=== PATIENT | female | born 1970 | race Caucasian/White ===

== ENCOUNTER 2017-03-11 10:18 | Emergency (ER) | payer OTHER ==
--- NOTE | 2017-03-11 12:04 | DIAGNOSTIC IMAGING REPORT ---
PROCEDURE: CT ABDOMEN/PELVIS W/O CONTRAST INDICATION: Left flank pain. History of renal calculi. TECHNIQUE: Noncontrast axial images were obtained of the entire abdomen and pelvis with sagittal and coronal reformations. COMPARISON: CT abdomen/pelvis 10/22/2015. FINDINGS: ABDOMEN: New punctate density which may represent a mid left ureteral calculus with mild left hydronephrosis. Punctate nonobstructing calculus in the right renal lower pole. Lung bases are clear. Heart size is normal. Cholecystectomy. Liver, pancreas, spleen and adrenal glands are normal. Minor atherosclerosis of the aorta. Stool throughout the large bowel. PELVIS: Normal appendix. Hysterectomy. Normal bladder. No inflammatory changes or free fluid. L4-5 surgical fusion with bilateral pedicle screws, anterior rods and disc spacer. Severe L5-S1 disc space narrowing. IMPRESSION: 1. Mild left hydronephrosis with suspected mid left ureteral calculus 2. Nonobstructing right renal calculus 3. Cholecystectomy, hysterectomy and L4-5 spinal fusion. 4. Results discussed with Dr. Broussard All CT scans at this facility use dose modulation, iterative reconstruction, and/or weight-based dosing when appropriate to reduce radiation dose to as low as reasonably achievable.
--- NOTE | 2017-03-11 12:34 | ED NURSING NOTES ---
Clinical Report - Nurses [facility] [address] [place] [address] 03/11/2017 10:21 Patient: LILIAN PARMAR TRIAGE Triage time 1024. Acuity: LEVEL 3. Chief Complaint: PAINFUL URINATION, URGENCY and FREQUENCY. --10:35 Maria T Duncan R.N. 10:24 03/11/17. BP: 120/60. HR: 84. RR: 20. O2 saturation: 100%. Temp: 98.5 F. Pain level now: 08/03. --10:35 Maria T Duncan R.N. Weight: 70.3 kg stated. Height/Length: 66 inches Per Patient. BMI: 25. --10:25 Maria T Duncan R.N. Medications Atenolol Oral (Tablet 50 mg), daily. Estradiol Oral (Tablet 1 mg) 1 tablet. --10:33 Maria T Duncan R.N. HydrOXYzine HCl Oral. Zofran ODT Oral (Tablet Dispersible 4 mg), as needed, last dose 0700. --10:33 Maria T Duncan R.N. Percocet 1-2 tabs every 4 hours - last dose 0630. --10:34 Maria T Duncan R.N. Allergies all anti nausea medication except for zofran. ("heart problem....heart goes fast and I feel like I want to crawl out of my skin" ) --10:27 Maria T Duncan R.N. The following entry was struck and corrected by Maria T Duncan R.N., 10:35 (03/11/17) Reason for correction - other(correction). <<STRICKEN ENTRY-- all anti nausea medication except for zofran. --10:27 Maria T Duncan R.N. --END STRIKE>>. History Arrived by private vehicle. Historian: patient. Accompanied by friend. Primary physician (vilma melendez). Onset. (1 week, has appt with urologist tomorrow, but "couldn't wait until then, just getting worse). She has had abdominal pain (left sided low abd pain going into groin area). ( hx of kidney stones - last episode 2 weeks ago). PAST MEDICAL HX: The patient has had a hysterectomy. SOCIAL HX: Light tobacco smoker (cigarette)- less than 1/2 a pack per day. History of drug use: marijuana. No alcohol use. --10:35 Maria T Duncan R.N. PROBLEMS: Abdominal Pain. Diabetes Mellitus. Allergic Reaction. Back Injury. Arthritis. SVT. Back Pain. --10:27 Maria T Duncan R.N. Nephrolithiasis. --10:31 Maria T Duncan R.N. ADDITIONAL SURGERIES: Back Surgery. Hysterectomy. Laminectomy. TMJ surgery. --10:27 Maria T Duncan R.N. Cholecystectomy. --10:31 Maria T Duncan R.N. Interventions ID band on patient. To treatment room. --10:35 Maria T Duncan R.N. PHYSICAL ASSESSMENT 10:24. To room via wheelchair. Patient gowned. GENERAL / NEURO / PSYCH: Alert. Oriented X 4. RESPIRATORY: Respirations not labored. CVS: Capillary refill less than 2 seconds. GI / : Abdomen soft. Pain with urination. She has had frequency of urination. Urgency of urination. No vaginal bleeding. SKIN: Skin is warm and dry. --10:36 Maria T Duncan R.N. NURSING PROGRESS NOTES 10:24. Patient gowned. Head of bed elevated. Reassurance given. Patient identifiers checked. Call light placed in reach. Side rails up. Bed placed in lowest position. Patient ready for evaluation- chart flagged. --10:35 Maria T Duncan R.N. 10:35 03/11/17. Patient ID band checked for patient name and birthdate: patient confirmed. Clean catch urine collected with return of yellow-colored clear urine; sample sent to lab for urinalysis and culture. Specimen labeled in the presence of the patient. --10:36 Maria T Duncan R.N. 11:00 03/11/2017 Site #1 started via IV in the right antecubital space with an 20g angiocath, with aseptic technique and good blood return; one attempt. Blood drawn: rainbow set. Labeled in the presence of the patient and sent to the lab. Saline lock flushed with 10 mL saline. --11:11 Maria T Duncan R.N. <<STRICKEN ENTRY-- 11:10. Wound irrigated with 250 mL sterile NS; patient tolerated procedure well (done by [employer]). --11:31 Maria T Duncan R.N. --END STRIKE>> Correction --11:34 Maria T Duncan R.N. <<STRICKEN ENTRY-- 11:20. Applied clean bulky dressing consisting of adaptic and gauze, following the application of antibiotic ointment. Secured with tape and kerlix (done by [email or web address]). --11:32 Maria T Duncan R.N. --END STRIKE>> Correction --11:34 Maria T Duncan R.N. <<STRICKEN ENTRY-- 11:22. ( post op walking boot placed on pt by [employer]). --11:33 Maria T Duncan R.N. --END STRIKE>> Correction --11:40 Maria T Duncan R.N. 11:27. Patient transported to [place] by stretcher with tech. --11:40 Maria T Duncan R.N. 11:37. Patient returned from [place] by stretcher with tech. --11:41 Maria T Duncan R.N. 11:05 03/11/2017 Zofran (Ondansetron HCl) IVP 4 mg given over 1 minute(s) via site #1. IV patency established. IV site checked: no pain, redness, or swelling. IV flushed thoroughly pre- and post-medication administration. IVP given by RN. --11:42 Maria T Duncan R.N. 11:06 03/11/2017 Toradol IVP 30 mg given over 1 minute(s) via site #1. IV patency established. IV site checked: no pain, redness, or swelling. IV flushed thoroughly pre- and post-medication administration. IVP given by RN. --11:42 Maria T Duncan R.N. 11:07 03/11/2017 Dilaudid (HYDROmorphone HCl PF) IVP 1 mg given over 1 minute(s) via site #1. Sedative warning given to the patient. IV patency established. IV site checked: no pain, redness, or swelling. IV flushed thoroughly pre- and post-medication administration. IVP given by RN. --11:43 Maria T Duncan R.N. 11:10 03/11/2017 Started bag #1 1000 mL IV Fluids IV NS (Saline); at 1000 mL/hr over 1 minute(s) via site #1 via IV pump. IV patency established. IV site checked: no pain, redness, or swelling. IV flushed thoroughly pre- and post-medication administration. --11:43 Maria T Duncan R.N. 12:10. ( pt ambulated to bathroom, able to walk standing up. states pain is 7/10). --12:24 Maria T Duncan R.N. 11:55 03/11/2017 Dilaudid (HYDROmorphone HCl PF) IVP 2 mg given over 1 minute(s) via site #1. Sedative warning given to the patient. IV patency established. IV site checked: no pain, redness, or swelling. IV flushed thoroughly pre- and post-medication administration. IVP given by RN. --12:25 Maria T Duncan R.N. 12:15 03/11/17. BP: 121/68. HR: 64. RR: 16. O2 saturation: 98%. Temp: 98.3 F. Pain level now: 10. --12:33 Maria T Duncan R.N. 12:50 03/11/2017 Started 1 gm of Ceftriaxone IVPB in bag #1 50 mL; at 150 mL/hr over 20 minute(s) via site #1 via IV pump. IV patency established. IV site checked: no pain, redness, or swelling. IV flushed thoroughly pre- and post-medication administration. --13:18 Maria T Duncan R.N. 13:00 03/11/2017 Pyridium (Phenazopyridine HCl) PO Tablets 100 mg given. Allergies verified and confirmed 5 rights. --13:19 Maria T Duncan R.N. 13:05 03/11/2017 Ceftriaxone IVPB Discontinued: bag #1 infused upon discharge. Total amount infused: 50 mL. IV patency established. IV site checked: no pain, redness, or swelling. IV flushed thoroughly. --13:18 Maria T Duncan R.N. 13:00 pt asking for additional pain meds prior to discharge, ERMD notified, meds ordered and given. --13:39 Maria T Duncan R.N. 12:10 03/11/2017 IV Fluids IV NS Bag Change: bag #1 infused. Total amount infused: 1000. STARTED bag #2 (1000 mL) at 1000 mL/hr via IV pump. IV patency established. IV site checked: no pain, redness, or swelling. IV flushed thoroughly. --13:51 Maria T Duncan R.N. 12:30 03/11/2017 Dilaudid (HYDROmorphone HCl PF) IVP 2 mg given over 1 minute(s) via site #1. Sedative warning given to the patient. IV patency established. IV site checked: no pain, redness, or swelling. IV flushed thoroughly pre- and post-medication administration. IVP given by RN. --13:42 Maria T Duncan R.N. 12:32 03/11/2017 Zofran (Ondansetron HCl) IVP 4 mg given over 1 minute(s) via site #1. IV patency established. IV site checked: no pain, redness, or swelling. IV flushed thoroughly pre- and post-medication administration. IVP given by RN. --13:44 Maria T Duncan R.N. 13:00 03/11/2017 IV Fluids IV NS Discontinued: bag #2 STOPPED upon discharge. Total amount infused: 700 mL. IV patency established. IV site checked: no pain, redness, or swelling. IV flushed thoroughly. --13:51 Maria T Duncan R.N. 13:03 03/11/2017 Dilaudid (HYDROmorphone HCl PF) IVP 1 mg given over 1 minute(s) via site #1. IV patency established. IV site checked: no pain, redness, or swelling. IV flushed thoroughly pre- and post-medication administration. IVP given by RN. --13:43 Maria T Duncan R.N. 13:05 03/11/2017 Site #1 removed upon discharge. Bandaid applied. --13:52 Maria T Duncan R.N. DISPOSITION / DISCHARGE <<[facility] ENTRY-- 11:25. Condition at departure: stable. No learning barriers present. Discharge instructions provided and reviewed with the patient. Reviewed medication(s) (bactrim, keflex). Reviewed wound care instructions (post op walking boot). Patient verbalized understanding. Written instructions provided in [place]. The patient was discharged home. She left the Emergency Department ambulatory and via private vehicle. --11:30 Maria T Duncan R.N. --END STRIKE>> Charted On Wrong Patient --11:34 Maria T Duncan R.N. <<[facility] ENTRY-- 11:25 03/11/17. BP: 116/61. HR: 73. RR: 16. O2 saturation: 97% on room air. Temp: deferred. Pain level now: 0/10. --11:30 Maria T Duncan R.N. --END STRIKE>> Correction. --11:34 Maria T Duncan R.N. 13:10. Condition at departure: stable. No learning barriers present. Discharge instructions provided and reviewed with ditch tender and the patient. Reviewed medication(s) (zofran, cephalexin). Patient and ditch tender verbalized understanding. Written instructions provided in [place]. The patient was discharged home and accompanied by ditch tender. She left the Emergency Department ambulatory and via private vehicle. [employer] driving. --13:16 Maria T Duncan R.N. 13:10 03/11/17. BP: 110/70. HR: 68. RR: 16. O2 saturation: 100%. Temp: deferred. Pain level now: 7/10. --13:16 Maria T Duncan R.N. Locked/Released at 03/11/2017 13:52 by Maria T Duncan R.N.
--- NOTE | 2017-03-11 12:34 | ED ORDER SUMMARY ---
..... Patient: LILIAN PARMAR OrderSheet VisitID: [id number] [address] [place] [address] 47y, F Registration Date/Time: 03/11/2017 ORDER SHEET Weight: 70.3 kg (stated) Allergies: all anti nausea medication except for zofran, GENERAL ORDERS: UA-Culture if indicated Urgent (10:24 03/11/2017 Jef Nolan) (Ack 10:25 IJurcvish ER Tech1) (10:36 DDean R.N.) Urine Urgent (10:24 03/11/2017 Jef Nolan) (Ack 10:25 Richard ER Tech1) (Cancelled: [id number] DDean R.N.) CT Abd/Pel wo Cont Urgent (10:49 03/11/2017 Jef Nolan) (Ack 10:53 Richard ER Tech1) (11:33 DDean R.N.) CBC w Diff Urgent (10:49 03/11/2017 Jef Nolan) (Ack 10:53 Richard ER Tech1) (11:12 DDean R.N.) BMP Urgent (10:49 03/11/2017 Jef Nolan) (Ack 10:53 Richard ER Tech1) (11:12 DDean R.N.) MEDICATION ORDERS: Pyridium PO 100 mg (NOW) (12:32 03/11/2017 Jef Nolan) (Ack 12:33 DDean R.N.) (13:19 DDean R.N.) IV FLUIDS: IV NS : initial bolus 1000 mL (1000 mL/hr), then none - for X1 (NOW) (10:48 03/11/2017 Jef Nolan) (Ack 10:52 DDean R.N.) (11:43 DDean R.N.) Toradol IV 30 mg (NOW) (10:49 03/11/2017 Jef Nolan) (Ack 10:52 DDean R.N.) (11:42 DDean R.N.) Dilaudid IV 1 mg (HIGH ALERT MEDICATION, NOW) (10:49 03/11/2017 Jef Nolan) (Ack 10:53 DDean R.N.) (11:42 DDean R.N.) Zofran IV 4 mg (NOW) (10:49 03/11/2017 Jef Nolan) (Ack 10:53 DDean R.N.) (11:42 DDean R.N.) Dilaudid IV 2 mg (HIGH ALERT MEDICATION, NOW) (11:44 03/11/2017 Jef Nolan) (Ack 11:49 DDean R.N.) (12:25 DDean R.N.) Ceftriaxone IV 1 gm/50mL (NOW) (11:59 03/11/2017 Jef Nolan) (Ack 12:33 DDean R.N.) (13:18 DDean R.N.) Zofran IV 4 mg (NOW) (12:31 03/11/2017 Jef Nolan) (Ack 12:33 DDean R.N.) (13:44 DDean R.N.) Dilaudid IV 2 mg (HIGH ALERT MEDICATION, NOW) (12:32 03/11/2017 Jef Nolan) (Ack 12:33 DDean R.N.) (13:42 DDean R.N.) Dilaudid IV 1 mg (NOW) (13:42 03/11/2017 DDean R.N. per protocol) (13:43 DDean R.N.) ORDER SHEET NOTES: [Electronically signed by Maria T Duncan R.N. (13:52 03/11/2017)] [Electronically signed by Arsalan Broussard Dr. (10:27 03/12/2017)] [Electronically locked/signed by Maria T Duncan R.N. (13:52 03/11/2017)]
--- NOTE | 2017-03-11 12:34 | ED CLINICAL REPORT ---
Clinical Report - Physicians/Mid Levels [facility] [address] [place] [address] 03/11/2017 10:21 Patient: LILIAN PARMAR Time Seen: 1020. Arrived- By private vehicle. Historian- patient. HISTORY OF PRESENT ILLNESS Chief Complaint: FLANK PAIN. At its maximum, severity described as severe. When seen in the E.D., severity described as severe. Modifying factors- worsened by movement. Relieved by rest. This started past several days and is still present and worsening. It was gradual in onset and has been constant but is not gone now. It is described as sharp. No radiation. It is described as located in the left flank. No nausea, vomiting or diarrhea. No additional abdominal pain. (burning with urination). No recent travel. Similar symptoms previously: None. Recent medical care: Not recently seen/assessed. REVIEW OF SYSTEMS No constipation, black stools, hematemesis, bloody stools or fever. No chest pain or difficulty breathing. All systems otherwise negative, except as recorded above. PAST HISTORY See nurses notes. Medications: Percocet 1-2 tabs every 4 hours - last dose 0630. HydrOXYzine HCl Oral. Zofran ODT Oral (Tablet Dispersible 4 mg), as needed, last dose 0700. Atenolol Oral (Tablet 50 mg), daily. Estradiol Oral (Tablet 1 mg) 1 tablet. Allergies: all anti nausea medication except for zofran. ("heart problem....heart goes fast and I feel like I want to crawl out of my skin" ). SOCIAL HISTORY Smoker- current status unknown. Occasional alcohol use. (nd). No drug use. No recent travel. Is a local resident. ADDITIONAL NOTES The nursing notes have been reviewed. PHYSICAL EXAM Vital Signs: 03/11/2017 10:24 BP: 120/60. HR: 84. RR: 20. O2 saturation: 100%. Temp: 98.5 F. Pain level now: 10/10. Blood pressure normal. Oxygen saturation normal. Appearance: Alert. Oriented X3. No acute distress. (non-toxic). Eyes: Pupils equal, round and reactive to light. Eyes normal inspection. ENT: Ears normal. Nose normal. Pharynx normal. Neck: Normal inspection. Neck supple. CVS: Normal heart rate and rhythm. Heart sounds normal. Pulses normal. Respiratory: No respiratory distress. Breath sounds normal. Chest nontender. Abdomen: Soft and nontender. Bowel sounds normal. Back: Mild CVA tenderness on the left. Skin: Skin warm and dry. Normal skin color. No rash. Normal skin turgor. Extremities: Extremities exhibit normal ROM. No lower extremity edema. Neuro: Oriented X 3. No motor deficit. No sensory deficit. LABS, X-RAYS, AND EKG Abdominal CT: PROCEDURE: CT ABDOMEN/PELVIS W/O CONTRAST INDICATION: Left flank pain. History of renal calculi. TECHNIQUE: Noncontrast axial images were obtained of the entire abdomen and pelvis with sagittal and coronal reformations. COMPARISON: CT abdomen/pelvis 10/22/2015. FINDINGS: ABDOMEN: New punctate density which may represent a mid left ureteral calculus with mild left hydronephrosis. Punctate nonobstructing calculus in the right renal lower pole. Lung bases are clear. Heart size is normal. Cholecystectomy. Liver, pancreas, spleen and adrenal glands are normal. Minor atherosclerosis of the aorta. Stool throughout the large bowel. PELVIS: Normal appendix. Hysterectomy. Normal bladder. No inflammatory changes or free fluid. L4-5 surgical fusion with bilateral pedicle screws, anterior rods and disc spacer. Severe L5-S1 disc space narrowing. IMPRESSION: 1. Mild left hydronephrosis with suspected mid left ureteral calculus 2. Nonobstructing right renal calculus 3. Cholecystectomy, hysterectomy and L4-5 spinal fusion. The study was independently viewed by me, interpreted by the radiologist and discussed with the radiologist. Laboratory Tests: UA-Culture if indicated: (NICOLÁS: 03/11/2017 10:30) ( MsgRcvd 03/11/2017 11:34) Final results Test Result Flag Units (Reference) URINE COLOR YELLOW URINE APPEARANCE CLOUDY URINE GLUCOSE NEGATIVE (NEGATIVE) URINE BILIRUBIN NEGATIVE (NEGATIVE) URINE KETONE NEGATIVE (NEGATIVE) URINE SPECIFIC GRAVITY 1.020 (1.010-1.030) URINE PH 6.0 (5.0-8.0) URINE PROTEIN TRACE (NEGATIVE) URINE UROBILINOGEN 0.2 EU/dL (0.2-1.0) URINE NITRITE NEGATIVE (NEGATIVE) URINE BLOOD 1+ (NEGATIVE) URINE LEUK ESTERASE POSITIVE (NEGATIVE) URINE RBC 10-25 rbc/hpf (0-1) URINE WBC >100 wbc/hpf (0-1) URINE EPITHELIAL CELLS 3-5 EPI/hpf (0-5) URINE BACTERIA MODERATE (2+ TO 3+) (NONE SEEN) URINE COMMENT CULTURE INDICATED URINE CULTURES ARE SET-UP BASED ON THE FOLLOWING CRITERIA:POSITIVE NITRITEPOSITIVE LEUKOCYTE ESTERASEGREATER THAN 10 WHITE BLOOD CELLSMODERATE (2+) OR GREATER BACTERIA CBC w Diff: (NICOLÁS: 03/11/2017 11:00) ( MsgRcvd 03/11/2017 11:24) Final results Test Result Flag Units (Reference) WHITE BLOOD COUNT 7.6 K/uL (4.5-11.5) RED BLOOD COUNT 4.82 M/uL (4.00-5.20) HEMOGLOBIN 14.5 gm/dL (12.0-16.0) HEMATOCRIT 43.0 % (36.0-46.0) MEAN CELL VOLUME 89 fL (80-100) MEAN CORPUSCULAR HGB 30 pg (26-34) MEAN CORPUSCULAR HGB CONC 34 g/dL (31-37) RED CELL DISTRIBUTION WIDTH 12.5 % (11.6-14.8) PLATELET COUNT 176 K/uL (150-400) NEUTROPHIL % 66.0 % (50-75) LYMPH % 28.4 % (25-40) MONO % 3.3 % (3-14) EOSINOPHIL % 1.9 % (0-4) BASOPHIL % 0.4 % (0-2) BMP: (NICOLÁS: 03/11/2017 11:00) ( MsgRcvd 03/11/2017 11:40) Final results Test Result Flag Units (Reference) GLUCOSE 137 H mg/dL (70-110) BUN 8 mg/dL (7-18) CREATININE 0.8 mg/dL (0.6-1.3) Estimated GFR >60 mL/min Estimated GFR- >60 mL/min Note: Persistent reduction over 3 months in eGFR<60 mL/min/1.73 m2 defines CKD. Patients with eGFR values>=60 mL/min/1.73 m2 may also have CKD if evidence ofpersistent proteinuria. Additional information may be foundat www.kidney.org. SODIUM 139 mmol/L (136-145) POTASSIUM 3.6 mmol/L (3.5-5.1) CHLORIDE 101 mmol/L (98-107) CARBON DIOXIDE 27 mmol/L (21-32) CALCIUM 8.4 L mg/dL (8.5-10.1) . PROGRESS AND PROCEDURES Course of Care: The patient is a pleasant 47-year-old female with past medical history significant for kidney stones presenting for nausea and left-sided flank pain. Patient's symptoms appear to be somewhat atypical as the pain as been constant since starting. Patient also with burning with urination. Loss be concern for pyelonephritis. Patient is nontoxic and in no acute distress. Vital signs are noted to be unremarkable. Patient be evaluated with laboratory studies including urinalysis and CT scan of the abdomen and pelvis. No concern for abdominal aortic aneurysm. Patient is agreeable to the treatment plan. Pain medication as been provided. The patient's workup was marked for the findings above. There is a somewhat difficult time is having the pain control here in the emergency department. Patient has required multiple doses of narcotics while here. Patient also with a fairly large dose of narcotics in order to achieve improvement with symptoms. Patient is also noted to be on chronic pain medication and on a somewhat high dose. This would likely explain the patient's tolerance to the pain medication. Patient was eventually able to have significant improvement with the discomfort. Antibiotics provided here in the emergency department. patient reports having a follow-up with urology tomorrow. Patient will be encouraged to follow up with the urology appointment. Had a discussion with the patient in regards to her symptoms as well as workup, diagnosis, home care, follow-up, and return precautions. All questions have been answered. The patient expressed understanding of these instructions and was agreeable to them. Prior to patient's departure from the emergency department she is noted to have a benign abdominal examination. Pain is improved. Patient continues to be afebrile nontoxic. Patient is a good outpatient candidate. Disposition: Discharged. Condition: good. CLINICAL IMPRESSION 03/11/2017 12:15 BP: 121/68. HR: 64. RR: 16. O2 saturation: 98%. Temp: 98.3 F. Pain level now: 05/03. Gross hematuria (acute). Blood pressure normal. Oxygen saturation normal. Ureterolithiasis (single stone) in the left ureter with renal colic. Acute pyelonephritis INSTRUCTIONS Warnings: GENERAL WARNINGS: Return or contact your physician immediately if your condition worsens or changes unexpectedly, if not improving as expected, or if other problems arise. SPECIFICALLY, return if you develop pain, fever, vomiting, the inability to keep fluids down, blood in vomitus, blood in diarrhea, fainting or lightheadedness. Your Current Medications: CONTINUE TAKING THE FOLLOWING MEDICATIONS: Atenolol Oral : Tablet 50 mg, daily. Estradiol Oral : Tablet 1 mg, 1 tablet. HydrOXYzine HCl Oral. Percocet 1-2 tabs every 4 hours - last dose 0630*. Zofran ODT Oral : Tablet Dispersible 4 mg, Last: 0700, prn. Prescription Medications: Zofran (orally disintegrating tablets) 4 mg: take 1 orally every 8 hours as needed for nausea and vomiting. Dispense fifteen (15). No refill. Substitution is permissible. Cephalexin 500 mg: take 1 capsule orally every 8 hours for 10 days. No refill. (disp 30 caps) Follow-up: Return to the emergency department as needed. Follow up with a urologist as scheduled. Reason for referral: recheck today's concerns. Summary of care provided to patient via paper. Follow up with your doctor in three days. Reason for referral: recheck today's concerns. Summary of care provided to patient via paper. Screening today revealed the patient's blood pressure to be in the normal range. The patient should follow up with a primary care provider for blood pressure management. Understanding of the discharge instructions verbalized by patient. (Electronically signed by Arsalan Broussard Dr. 03/12/2017 10:27)
--- NOTE | 2017-03-11 12:34 | ED ORDER SUMMARY ---
..... Patient: LILIAN PARMAR OrderSheet [facility] VisitID: [id number] [address] [place] [address] 47y, F Registration Date/Time: 03/11/2017 ORDER SHEET Weight: 70.3 kg (stated) Allergies: all anti nausea medication except for zofran, GENERAL ORDERS: UA-Culture if indicated Urgent (10:24 03/11/2017 Jef Nolan) (Ack 10:25 IJurcvish ER Tech1) (10:36 DDean R.N.) Urine Urgent (10:24 03/11/2017 Jef Nolan) (Ack 10:25 Richard ER Tech1) (Cancelled: [id number] DDean R.N.) CT Abd/Pel wo Cont Urgent (10:49 03/11/2017 Jef Nolan) (Ack 10:53 Richard ER Tech1) (11:33 DDean R.N.) CBC w Diff Urgent (10:49 03/11/2017 Jef Nolan) (Ack 10:53 Richard ER Tech1) (11:12 DDean R.N.) BMP Urgent (10:49 03/11/2017 Jef Nolan) (Ack 10:53 Richard ER Tech1) (11:12 DDean R.N.) MEDICATION ORDERS: Pyridium PO 100 mg (NOW) (12:32 03/11/2017 Jef Nolan) (Ack 12:33 DDean R.N.) (13:19 DDean R.N.) IV FLUIDS: IV NS : initial bolus 1000 mL (1000 mL/hr), then none - for X1 (NOW) (10:48 03/11/2017 Jef Nolan) (Ack 10:52 DDean R.N.) (11:43 DDean R.N.) Toradol IV 30 mg (NOW) (10:49 03/11/2017 Jef Nolan) (Ack 10:52 DDean R.N.) (11:42 DDean R.N.) Dilaudid IV 1 mg (HIGH ALERT MEDICATION, NOW) (10:49 03/11/2017 Jef Nolan) (Ack 10:53 DDean R.N.) (11:42 DDean R.N.) Zofran IV 4 mg (NOW) (10:49 03/11/2017 Jef Nolan) (Ack 10:53 DDean R.N.) (11:42 DDean R.N.) Dilaudid IV 2 mg (HIGH ALERT MEDICATION, NOW) (11:44 03/11/2017 Jef Nolan) (Ack 11:49 DDean R.N.) (12:25 DDean R.N.) Ceftriaxone IV 1 gm/50mL (NOW) (11:59 03/11/2017 Jef Nolan) (Ack 12:33 DDean R.N.) (13:18 DDean R.N.) Zofran IV 4 mg (NOW) (12:31 03/11/2017 Jef Nolan) (Ack 12:33 DDean R.N.) (13:44 DDean R.N.) Dilaudid IV 2 mg (HIGH ALERT MEDICATION, NOW) (12:32 03/11/2017 Jef Nolan) (Ack 12:33 DDean R.N.) (13:42 DDean R.N.) Dilaudid IV 1 mg (NOW) (13:42 03/11/2017 DDean R.N. per protocol) (13:43 DDean R.N.) ORDER SHEET NOTES: [Electronically signed by Maria T Duncan R.N. (13:52 03/11/2017)] [Electronically signed by Arsalan Broussard Dr. (10:27 03/12/2017)] [Electronically locked/signed by Maria T Duncan R.N. (13:52 03/11/2017)]
--- NOTE | 2017-03-11 12:34 | ED NURSING NOTES ---
Clinical Report - Nurses [facility] [address] [place] [address] 03/11/2017 10:21 Patient: LILIAN PARMAR TRIAGE Triage time 1024. Acuity: LEVEL 3. Chief Complaint: PAINFUL URINATION, URGENCY and FREQUENCY. --10:35 Maria T Duncan R.N. 10:24 03/11/17. BP: 120/60. HR: 84. RR: 20. O2 saturation: 100%. Temp: 98.5 F. Pain level now: 08/03. --10:35 Maria T Duncan R.N. Weight: 70.3 kg stated. Height/Length: 66 inches Per Patient. BMI: 25. --10:25 Maria T Duncan R.N. Medications Atenolol Oral (Tablet 50 mg), daily. Estradiol Oral (Tablet 1 mg) 1 tablet. --10:33 Maria T Duncan R.N. HydrOXYzine HCl Oral. Zofran ODT Oral (Tablet Dispersible 4 mg), as needed, last dose 0700. --10:33 Maria T Duncan R.N. Percocet 1-2 tabs every 4 hours - last dose 0630. --10:34 Maria T Duncan R.N. Allergies all anti nausea medication except for zofran. ("heart problem....heart goes fast and I feel like I want to crawl out of my skin" ) --10:27 Maria T Duncan R.N. The following entry was struck and corrected by Maria T Duncan R.N., 10:35 (03/11/17) Reason for correction - other(correction). <<STRICKEN ENTRY-- all anti nausea medication except for zofran. --10:27 Maria T Duncan R.N. --END STRIKE>>. History Arrived by private vehicle. Historian: patient. Accompanied by friend. Primary physician (vilma melendez). Onset. (1 week, has appt with urologist tomorrow, but "couldn't wait until then, just getting worse). She has had abdominal pain (left sided low abd pain going into groin area). ( hx of kidney stones - last episode 2 weeks ago). PAST MEDICAL HX: The patient has had a hysterectomy. SOCIAL HX: Light tobacco smoker (cigarette)- less than 1/2 a pack per day. History of drug use: marijuana. No alcohol use. --10:35 Maria T Duncan R.N. PROBLEMS: Abdominal Pain. Diabetes Mellitus. Allergic Reaction. Back Injury. Arthritis. SVT. Back Pain. --10:27 Maria T Duncan R.N. Nephrolithiasis. --10:31 Maria T Duncan R.N. ADDITIONAL SURGERIES: Back Surgery. Hysterectomy. Laminectomy. TMJ surgery. --10:27 Maria T Duncan R.N. Cholecystectomy. --10:31 Maria T Duncan R.N. Interventions ID band on patient. To treatment room. --10:35 Maria T Duncan R.N. PHYSICAL ASSESSMENT 10:24. To room via wheelchair. Patient gowned. GENERAL / NEURO / PSYCH: Alert. Oriented X 4. RESPIRATORY: Respirations not labored. CVS: Capillary refill less than 2 seconds. GI / : Abdomen soft. Pain with urination. She has had frequency of urination. Urgency of urination. No vaginal bleeding. SKIN: Skin is warm and dry. --10:36 Maria T Duncan R.N. NURSING PROGRESS NOTES 10:24. Patient gowned. Head of bed elevated. Reassurance given. Patient identifiers checked. Call light placed in reach. Side rails up. Bed placed in lowest position. Patient ready for evaluation- chart flagged. --10:35 Maria T Duncan R.N. 10:35 03/11/17. Patient ID band checked for patient name and birthdate: patient confirmed. Clean catch urine collected with return of yellow-colored clear urine; sample sent to lab for urinalysis and culture. Specimen labeled in the presence of the patient. --10:36 Maria T Duncan R.N. 11:00 03/11/2017 Site #1 started via IV in the right antecubital space with an 20g angiocath, with aseptic technique and good blood return; one attempt. Blood drawn: rainbow set. Labeled in the presence of the patient and sent to the lab. Saline lock flushed with 10 mL saline. --11:11 Maria T Duncan R.N. <<STRICKEN ENTRY-- 11:10. Wound irrigated with 250 mL sterile NS; patient tolerated procedure well (done by [employer]). --11:31 Maria T Duncan R.N. --END STRIKE>> Correction --11:34 Maria T Duncan R.N. <<STRICKEN ENTRY-- 11:20. Applied clean bulky dressing consisting of adaptic and gauze, following the application of antibiotic ointment. Secured with tape and kerlix (done by [employer]). --11:32 Maria T Duncan R.N. --END STRIKE>> Correction --11:34 Maria T Duncan R.N. <<STRICKEN ENTRY-- 11:22. ( post op walking boot placed on pt by [employer]). --11:33 Maria T Duncan R.N. --END STRIKE>> Correction --11:40 Maria T Duncan R.N. 11:27. Patient transported to [place] by stretcher with tech. --11:40 Maria T Duncan R.N. 11:37. Patient returned from [place] by stretcher with tech. --11:41 Maria T Duncan R.N. 11:05 03/11/2017 Zofran (Ondansetron HCl) IVP 4 mg given over 1 minute(s) via site #1. IV patency established. IV site checked: no pain, redness, or swelling. IV flushed thoroughly pre- and post-medication administration. IVP given by RN. --11:42 Maria T Duncan R.N. 11:06 03/11/2017 Toradol IVP 30 mg given over 1 minute(s) via site #1. IV patency established. IV site checked: no pain, redness, or swelling. IV flushed thoroughly pre- and post-medication administration. IVP given by RN. --11:42 Maria T Duncan R.N. 11:07 03/11/2017 Dilaudid (HYDROmorphone HCl PF) IVP 1 mg given over 1 minute(s) via site #1. Sedative warning given to the patient. IV patency established. IV site checked: no pain, redness, or swelling. IV flushed thoroughly pre- and post-medication administration. IVP given by RN. --11:43 Maria T Duncan R.N. 11:10 03/11/2017 Started bag #1 1000 mL IV Fluids IV NS (Saline); at 1000 mL/hr over 1 minute(s) via site #1 via IV pump. IV patency established. IV site checked: no pain, redness, or swelling. IV flushed thoroughly pre- and post-medication administration. --11:43 Maria T Duncan R.N. 12:10. ( pt ambulated to bathroom, able to walk standing up. states pain is 7/10). --12:24 Maria T Duncan R.N. 11:55 03/11/2017 Dilaudid (HYDROmorphone HCl PF) IVP 2 mg given over 1 minute(s) via site #1. Sedative warning given to the patient. IV patency established. IV site checked: no pain, redness, or swelling. IV flushed thoroughly pre- and post-medication administration. IVP given by RN. --12:25 Maria T Duncan R.N. 12:15 03/11/17. BP: 121/68. HR: 64. RR: 16. O2 saturation: 98%. Temp: 98.3 F. Pain level now: 10. --12:33 Maria T Duncan R.N. 12:50 03/11/2017 Started 1 gm of Ceftriaxone IVPB in bag #1 50 mL; at 150 mL/hr over 20 minute(s) via site #1 via IV pump. IV patency established. IV site checked: no pain, redness, or swelling. IV flushed thoroughly pre- and post-medication administration. --13:18 Maria T Duncan R.N. 13:00 03/11/2017 Pyridium (Phenazopyridine HCl) PO Tablets 100 mg given. Allergies verified and confirmed 5 rights. --13:19 Maria T Duncan R.N. 13:05 03/11/2017 Ceftriaxone IVPB Discontinued: bag #1 infused upon discharge. Total amount infused: 50 mL. IV patency established. IV site checked: no pain, redness, or swelling. IV flushed thoroughly. --13:18 Maria T Duncan R.N. 13:00 pt asking for additional pain meds prior to discharge, ERMD notified, meds ordered and given. --13:39 Maria T Duncan R.N. 12:10 03/11/2017 IV Fluids IV NS Bag Change: bag #1 infused. Total amount infused: 1000. STARTED bag #2 (1000 mL) at 1000 mL/hr via IV pump. IV patency established. IV site checked: no pain, redness, or swelling. IV flushed thoroughly. --13:51 Maria T Duncan R.N. 12:30 03/11/2017 Dilaudid (HYDROmorphone HCl PF) IVP 2 mg given over 1 minute(s) via site #1. Sedative warning given to the patient. IV patency established. IV site checked: no pain, redness, or swelling. IV flushed thoroughly pre- and post-medication administration. IVP given by RN. --13:42 Maria T Duncan R.N. 12:32 03/11/2017 Zofran (Ondansetron HCl) IVP 4 mg given over 1 minute(s) via site #1. IV patency established. IV site checked: no pain, redness, or swelling. IV flushed thoroughly pre- and post-medication administration. IVP given by RN. --13:44 Maria T Duncan R.N. 13:00 03/11/2017 IV Fluids IV NS Discontinued: bag #2 STOPPED upon discharge. Total amount infused: 700 mL. IV patency established. IV site checked: no pain, redness, or swelling. IV flushed thoroughly. --13:51 Maria T Duncan R.N. 13:03 03/11/2017 Dilaudid (HYDROmorphone HCl PF) IVP 1 mg given over 1 minute(s) via site #1. IV patency established. IV site checked: no pain, redness, or swelling. IV flushed thoroughly pre- and post-medication administration. IVP given by RN. --13:43 Maria T Duncan R.N. 13:05 03/11/2017 Site #1 removed upon discharge. Bandaid applied. --13:52 Maria T Duncan R.N. DISPOSITION / DISCHARGE <<[facility] ENTRY-- 11:25. Condition at departure: stable. No learning barriers present. Discharge instructions provided and reviewed with the patient. Reviewed medication(s) (bactrim, keflex). Reviewed wound care instructions (post op walking boot). Patient verbalized understanding. Written instructions provided in Jordanian. The patient was discharged home. She left the Emergency Department ambulatory and via private vehicle. --11:30 Maria T Duncan R.N. --END STRIKE>> Charted On Wrong Patient --11:34 Maria T Duncan R.N. <<[facility] ENTRY-- 11:25 03/11/17. BP: 116/61. HR: 73. RR: 16. O2 saturation: 97% on room air. Temp: deferred. Pain level now: 0/10. --11:30 Maria T Duncan R.N. --END STRIKE>> Correction. --11:34 Maria T Duncan R.N. 13:10. Condition at departure: stable. No learning barriers present. Discharge instructions provided and reviewed with field care manager and the patient. Reviewed medication(s) (zofran, cephalexin). Patient and field care manager verbalized understanding. Written instructions provided in [place]ian. The patient was discharged home and accompanied by field care manager. She left the Emergency Department ambulatory and via private vehicle. Teletray Operator driving. --13:16 Maria T Duncan R.N. 13:10 03/11/17. BP: 110/70. HR: 68. RR: 16. O2 saturation: 100%. Temp: deferred. Pain level now: 7/10. --13:16 Maria T Duncan R.N. Locked/Released at 03/11/2017 13:52 by Maria T Duncan R.N.
--- NOTE | 2017-03-12 10:27 | ED MED RECONCILIATION SUMMARY ---
Patient: LILIAN PARMAR Medication Reconciliation Report [facility] VisitID: [id number] [address] [place] [address] 47y, F Registration Date/Time: 03/11/2017 Weight: 70.3 kg Height/Length: 66 in. BMI: 25.0 ALLERGIES: all anti nausea medication except for zofran The patient's Home Medications are listed below: CONTINUE TAKING THE FOLLOWING MEDICATIONS: Atenolol Oral (50 mg), daily Estradiol Oral (1 mg) 1 tablet HydrOXYzine HCl Oral Percocet 1-2 tabs every 4 hours - last dose 0630 Zofran ODT Oral (4 mg), last dose: 0700 The source(s) of the original Home Medication information: Not obtained. The following Medications were given to the patient in the Emergency Department: Zofran [IVP] IVP 4 mg, administered: 03/11/2017 11:05:00 AM Toradol [IVP] IVP 30 mg, administered: 03/11/2017 11:06:00 AM Dilaudid [IVP] IVP 1 mg, administered: 03/11/2017 11:07:00 AM IV NS IV Fluids bolus 0, then 1000 mL/hr, administered: 03/11/2017 11:10:00 AM Dilaudid [IVP] IVP 2 mg, administered: 03/11/2017 11:55:00 AM Ceftriaxone [IVPB] IVPB bolus 0, then 1 gm 150 mL/hr, administered: 03/11/2017 12:50:00 PM Pyridium [PO] PO 100 mg, administered: 03/11/2017 1:00:00 PM Dilaudid [IVP] IVP 2 mg, administered: 03/11/2017 12:30:00 PM Dilaudid [IVP] IVP 1 mg, administered: 03/11/2017 1:03:00 PM Zofran [IVP] IVP 4 mg, administered: 03/11/2017 12:32:00 PM The following Medications were prescribed to the patient: Zofran (orally disintegrating tablets) 4 mg: take 1 orally every 8 hours as needed for nausea and vomiting. Dispense fifteen (15). No refill. Substitution is permissible. -- Nakayama, Arsalan, Dr. Cephalexin 500 mg: take 1 capsule orally every 8 hours for 10 days. No refill.(disp 30 caps) -- Arsalan Broussard Dr.
--- NOTE | 2017-03-12 10:27 | ED DISCHARGE INSTRUCTIONS ---
Patient: LILIAN PARMAR General Instructions [facility] VisitID: [id number] [address] [place] [address] 47y, F Registration Date/Time: 03/11/2017 03/11/2017 12:15 BP: 121/68. HR: 64. RR: 16. O2 saturation: 98%. Temp: 98.3 F. Pain level now: 10. Gross hematuria (acute). Blood pressure normal. Oxygen saturation normal. Ureterolithiasis (single stone) in the left ureter with renal colic. Acute pyelonephritis INSTRUCTIONS Warnings: GENERAL WARNINGS: Return or contact your physician immediately if your condition worsens or changes unexpectedly, if not improving as expected, or if other problems arise. SPECIFICALLY, return if you develop pain, fever, vomiting, the inability to keep fluids down, blood in vomitus, blood in diarrhea, fainting or lightheadedness. Your Current Medications: CONTINUE TAKING THE FOLLOWING MEDICATIONS: Atenolol Oral : Tablet 50 mg, daily. Estradiol Oral : Tablet 1 mg, 1 tablet. HydrOXYzine HCl Oral. Percocet 1-2 tabs every 4 hours - last dose 0630*. Zofran ODT Oral : Tablet Dispersible 4 mg, Last: 0700, prn. Prescription Medications: Zofran (orally disintegrating tablets) 4 mg: take 1 orally every 8 hours as needed for nausea and vomiting. Dispense fifteen (15). No refill. Substitution is permissible. Cephalexin 500 mg: take 1 capsule orally every 8 hours for 10 days. No refill. (disp 30 caps) Follow-up: Return to the emergency department as needed. Follow up with a urologist as scheduled. Reason for referral: recheck today's concerns. Summary of care provided to patient via paper. Follow up with your doctor in three days. Reason for referral: recheck today's concerns. Summary of care provided to patient via paper. Screening today revealed the patient's blood pressure to be in the normal range. The patient should follow up with a primary care provider for blood pressure management. Understanding of the discharge instructions verbalized by patient. ADDITIONAL INFORMATION Kidney Stone (W/ Colic) The sharp cramping pain and nausea/vomiting that you have is due to a small stone which has formed in the kidney and is now passing down a narrow tube (ureter) on its way to your bladder. Once it reaches your bladder, the pain will stop. The stone may pass in your urine stream in one piece. [The size may be 1/16" to 1/4" (1-6mm)]. Or, the stone may also break up into sunil fragments which you may not even notice. Once you have had a kidney stone, you are at risk for developing another one in the future. Home Care: Drink plenty of fluids (at least 8 to 10 glasses of water a day). Most stones will pass on their own, but may take from a few hours to a few days. Sometimes the stone is too large to pass by itself and special methods will have to be used to remove the stone. Each time you urinate, do so in a jar. Pour the urine from the jar through the strainer and into the toilet. Continue doing this until 24 hours after your pain stops. By then, if there was a kidney stone, it should pass from your bladder. Some stones dissolve into sand-like particles and pass right through the strainer. In that case, you wont ever see a stone. Save any stone that you find in the strainer and bring it to your doctor for analysis. It may be possible to prevent certain types of stones from forming. Therefore, it is important to know what kind of stone you have. Try to stay as active as possible since this will help the stone pass. Do not stay in bed unless your pain prevents you from getting up. You may notice a red, pink or brown color to your urine. This is normal while passing a kidney stone. Follow Up with your doctor or return to this facility if the pain lasts more than 48 hours. Get Prompt Medical Attention if any of the following occur: Pain that is not controlled by the medicine given Repeated vomiting or unable to keep down fluids Weakness, dizziness or fainting Fever of 100.4F (38C) or higher, or as directed by your healthcare provider Passage of solid red or brown urine (can't see through it) or urine with lots of blood clots Unable to pass urine for 8 hours and increasing bladder pressure Blood In The Urine Blood in the urine ("hematuria") has many possible causes. If it occurs after an injury (such as a car accident or fall), it is most often a sign of bruising to the kidney or bladder. Common medical causes of blood in the urine include urinary tract infection, kidney stone, inflammation, tumors, or certain other diseases of the kidney or bladder. Menstruation can cause blood to appear in the urine sample, although it is not coming from the urinary tract. If only a trace amount of blood is present, it will show up on the urine test, even though the urine may be yellow and not pink or red. This may occur with any of the above conditions, as well as heavy exercise or high fever. In this case, your doctor may want to repeat the urine test on another day. This will show if the blood is still present. If so, then other tests can be done to find out the cause. Home Care: If your urine does not appear bloody (pink, brown or red) then you do not need to restrict your activity in any way. If you can see blood in your urine, rest and avoid heavy exertion until your next exam. Do not use aspirin or anti-inflammatory medicine like ibuprofen (Motrin, Advil) or naproxen (Naprosyn, Aleve). These thin the blood and may increase bleeding. Follow Up with your doctor or as advised by our staff. If you were injured and had blood in your urine, you should have a repeat urine test in 1-2 days. Contact your doctor or return to this facility for this test. [NOTE: A radiologist will review any X-rays that were taken. We will notify you of any new findings that may affect your care.] Get Prompt Medical Attention if any of the following occur: Bright red blood or blood clots in the urine (if a new symptom) Weakness, dizziness or fainting New groin, abdominal or back pain Fever of 100.4F (38C) or higher, or as directed by your healthcare provider Repeated vomiting Bleeding from nose, gums or easy bruising Kidney Infection [Adult, Female] An infection of the kidney is also called "pyelonephritis". It usually starts as a bladder infection ("cystitis") which spreads to the kidneys. Pyelonephritis is more serious than a bladder infection. It can cause severe illness if not treated properly. The usual symptoms include an aching pain in the back, side or lower abdomen. Other symptoms may include fever, chills, nausea, vomiting, an urge to urinate and a burning sensation when passing urine. Home Care: Stay home from work or school. Rest in bed until your fever breaks and you are feeling better. Drink lots of fluid (at least 6-8 glasses a day, unless you must restrict fluids for other medical reasons). This will force the medicine into your urinary system and flush the bacteria out of your body. Avoid sexual intercourse until you have finished all of your medicine and your symptoms have gone away. Avoid caffeine, alcohol and spicy foods which may irritate the kidney and bladder. You may use acetaminophen (Tylenol) or ibuprofen (Motrin, Advil) to control pain, unless another pain medicine was prescribed. [NOTE: If you have chronic liver or kidney disease or ever had a stomach ulcer or GI bleeding, talk with your doctor before using these medicines.] Follow Up with your doctor or as advised by our staff for a repeat urine test in 10 days. This will ensure that your infection is fully cleared. [NOTE: If you had an X-ray or CT scan, it will be reviewed by a specialist. You will be notified of any new findings that may affect your care.] Get Prompt Medical Attention if any of the following occur: Fever over 100.4F (38.0C) after 48 hours of treatment No improvement by the third day of treatment Increasing back or abdominal pain Repeated vomiting or inability to take oral medicine Weakness, dizziness or fainting Blood In The Urine Blood in the urine ("hematuria") has many possible causes. If it occurs after an injury (such as a car accident or fall), it is most often a sign of bruising to the kidney or bladder. Common medical causes of blood in the urine include urinary tract infection, kidney stone, inflammation, tumors, or certain other diseases of the kidney or bladder. Menstruation can cause blood to appear in the urine sample, although it is not coming from the urinary tract. If only a trace amount of blood is present, it will show up on the urine test, even though the urine may be yellow and not pink or red. This may occur with any of the above conditions, as well as heavy exercise or high fever. In this case, your doctor may want to repeat the urine test on another day. This will show if the blood is still present. If so, then other tests can be done to find out the cause. Home Care: If your urine does not appear bloody (pink, brown or red) then you do not need to restrict your activity in any way. If you can see blood in your urine, rest and avoid heavy exertion until your next exam. Do not use aspirin or anti-inflammatory medicine like ibuprofen (Motrin, Advil) or naproxen (Naprosyn, Aleve). These thin the blood and may increase bleeding. Follow Up with your doctor or as advised by our staff. If you were injured and had blood in your urine, you should have a repeat urine test in 1-2 days. Contact your doctor or return to this facility for this test. [NOTE: A radiologist will review any X-rays that were taken. We will notify you of any new findings that may affect your care.] Get Prompt Medical Attention if any of the following occur: Bright red blood or blood clots in the urine (if a new symptom) Weakness, dizziness or fainting New groin, abdominal or back pain Fever of 100.4F (38C) or higher, or as directed by your healthcare provider Repeated vomiting Bleeding from nose, gums or easy bruising Ondansetron Oral disintegrating tablet What is this medicine? ONDANSETRON (on JODI se michelle) is used to treat nausea and vomiting caused by chemotherapy. It is also used to prevent or treat nausea and vomiting after surgery. How should I use this medicine? These tablets are made to dissolve in the mouth. Do not try to push the tablet through the foil backing. With dry hands, peel away the foil backing and gently remove the tablet. Place the tablet in the mouth and allow it to dissolve, then swallow. While you may take these tablets with water, it is not necessary to do so. Talk to your credit collections rep regarding the use of this medicine in children. Special care may be needed. What side effects may I notice from receiving this medicine? Side effects that you should report to your doctor or health animal care technician as soon as possible: allergic reactions like skin rash, itching or hives, swelling of the face, lips, or tongue breathing problems dizziness fast or irregular heartbeat feeling faint or lightheaded, falls fever and chills swelling of the hands and feet tightness in the chest Side effects that usually do not require medical attention (report to your doctor or health animal care technician if they continue or are bothersome): constipation or diarrhea headache What may interact with this medicine? Do not take this medicine with any of the following medications: -apomorphine -cisapride -dofetilide -dronedarone -pimozide -thioridazine -ziprasidone This medicine may also interact with the following medications: -carbamazepine -phenytoin -rifampicin -tramadol -other medicines that prolong the QT interval (cause an abnormal heart rhythm) What if I miss a dose? If you miss a dose, take it as soon as you can. If it is almost time for your next dose, take only that dose. Do not take double or extra doses. Where should I keep my medicine? Keep out of the reach of children. Store between 2 and 30 degrees C (36 and 86 degrees F). Throw away any unused medicine after the expiration date. What should I tell my health care provider before I take this medicine? They need to know if you have any of these conditions: heart disease history of irregular heartbeat liver disease low levels of magnesium or potassium in the blood an unusual or allergic reaction to ondansetron, granisetron, other medicines, foods, dyes, or preservatives or trying to get breast-feeding What should I watch for while using this medicine? Check with your doctor or health animal care technician as soon as you can if you have any sign of an allergic reaction. Cephalexin Monohydrate Oral tablet What is this medicine? CEPHALEXIN (sef a AZIZA in) is a cephalosporin antibiotic. It is used to treat certain kinds of bacterial infections It will not work for colds, flu, or other viral infections. How should I use this medicine? Take this medicine by mouth with a full glass of water. Follow the directions on the prescription label. This medicine can be taken with or without food. Take your medicine at regular intervals. Do not take your medicine more often than directed. Take all of your medicine as directed even if you think you are better. Do not skip doses or stop your medicine early. Talk to your credit collections rep regarding the use of this medicine in children. While this drug may be prescribed for selected conditions, precautions do apply. What side effects may I notice from receiving this medicine? Side effects that you should report to your doctor or health animal care technician as soon as possible: allergic reactions like skin rash, itching or hives, swelling of the face, lips, or tongue breathing problems pain or trouble passing urine redness, blistering, peeling or loosening of the skin, including inside the mouth severe or watery diarrhea unusually weak or tired yellowing of the eyes, skin Side effects that usually do not require medical attention (report to your doctor or health animal care technician if they continue or are bothersome): gas or heartburn genital or anal irritation headache joint or muscle pain nausea, vomiting What may interact with this medicine? probenecid some other antibiotics What if I miss a dose? If you miss a dose, take it as soon as you can. If it is almost time for your next dose, take only that dose. Do not take double or extra doses. There should be at least 4 to 6 hours between doses. Where should I keep my medicine? Keep out of the reach of children. Store at room temperature between 59 and 86 degrees F (15 and 30 degrees C). Throw away any unused medicine after the expiration date. What should I tell my health care provider before I take this medicine? They need to know if you have any of these conditions: kidney disease stomach or intestine problems, especially colitis an unusual or allergic reaction to cephalexin, other cephalosporins, penicillins, other antibiotics, medicines, foods, dyes or preservatives or trying to get breast-feeding What should I watch for while using this medicine? Tell your doctor or health animal care technician if your symptoms do not begin to improve in a few days. Do not treat diarrhea with over the counter products. Contact your doctor if you have diarrhea that lasts more than 2 days or if it is severe and watery. If you have diabetes, you may get a false-positive result for sugar in your urine. Check with your doctor or health animal care technician. You have been given the following additional information: Kidney Stone W/ Colic Hematuria Pyelonephritis, Female (Adult) Hematuria Ondansetron Oral disintegrating tablet Cephalexin Monohydrate Oral tablet (Electronically signed by Arsalan Broussard Dr. 03/12/2017 10:27)
--- NOTE | 2017-03-12 10:27 | ED MAR SUMMARY ---
..... Medication Administration Record [facility] [address] [place] [place] [address] Patient: LILIAN PARMAR Visit ID: [id number] 47y, F Weight: 70.3 kg Height/Length: 66 in BMI: 25 ALLERGIES: all anti nausea medication except for zofran Given 11:05 03/11/2017 Maria T Duncan R.N. Medication Administered: ZOFRAN [IVP] (ONDANSETRON HCL), Dose: 4 mg IVP over 1 minute(s), Site: #1 right AC. Medication Ordered: Zofran IV 4 mg (NOW). Given 11:06 03/11/2017 Maria T Duncan R.N. Medication Administered: TORADOL [IVP], Dose: 30 mg IVP over 1 minute(s), Site: #1 right AC. Medication Ordered: Toradol IV 30 mg (NOW). Given 11:07 03/11/2017 Maria T Duncan R.N. Medication Administered: DILAUDID [IVP] (HYDROMORPHONE HCL PF), Dose: 1 mg IVP over 1 minute(s), Site: #1 right AC. Medication Ordered: Dilaudid IV 1 mg (HIGH ALERT MEDICATION, NOW). Start 11:10 03/11/2017 Maria T Duncan R.N., Stop 13:00 03/11/2017 Maria T Duncan R.N. Medication Administered: IV NS (SALINE), Dose: IV Fluids over 1 minute(s), Rate: 1000 mL/hr, Dispensed: 1000 mL bag, Site: #1 right AC. Medication Ordered: IV NS : initial bolus 1000 mL (1000 mL/hr), then none - for X1 (NOW). Given 11:55 03/11/2017 Maria T Duncan R.N. Medication Administered: DILAUDID [IVP] (HYDROMORPHONE HCL PF), Dose: 2 mg IVP over 1 minute(s), Site: #1 right AC. Medication Ordered: Dilaudid IV 2 mg (HIGH ALERT MEDICATION, NOW). Given 12:30 03/11/2017 Maria T Duncan R.N. Medication Administered: DILAUDID [IVP] (HYDROMORPHONE HCL PF), Dose: 2 mg IVP over 1 minute(s), Site: #1 right AC. Medication Ordered: Dilaudid IV 2 mg (HIGH ALERT MEDICATION, NOW). Given 12:32 03/11/2017 Maria T Duncan R.N. Medication Administered: ZOFRAN [IVP] (ONDANSETRON HCL), Dose: 4 mg IVP over 1 minute(s), Site: #1 right AC. Medication Ordered: Zofran IV 4 mg (NOW). Start 12:50 03/11/2017 Maria T Duncan R.N., Stop 13:05 03/11/2017 Maria T Duncan R.N. Medication Administered: CEFTRIAXONE [IVPB], Dose: 1 gm IVPB over 20 minute(s), Rate: 150 mL/hr, Dispensed: 50 mL bag, Site: #1 right AC. Medication Ordered: Ceftriaxone IV 1 gm/50mL (NOW). Given 13:00 03/11/2017 Maria T Duncan R.N. Medication Administered: PYRIDIUM [PO] (PHENAZOPYRIDINE HCL), Dose: 100 mg Tablets PO. Medication Ordered: Pyridium PO 100 mg (NOW). Given 13:03 03/11/2017 Maria T Duncan R.N. Medication Administered: DILAUDID [IVP] (HYDROMORPHONE HCL PF), Dose: 1 mg IVP over 1 minute(s), Site: #1 right AC. Medication Ordered: Dilaudid IV 1 mg (NOW).
--- NOTE | 2017-03-12 10:27 | ED MAR SUMMARY ---
..... Medication Administration Record [facility] [address] [place] [address] Patient: LILIAN PARMAR Visit ID: [id number] 47y, F Weight: 70.3 kg Height/Length: 66 in BMI: 25 ALLERGIES: all anti nausea medication except for zofran Given 11:05 03/11/2017 Maria T Duncan R.N. Medication Administered: ZOFRAN [IVP] (ONDANSETRON HCL), Dose: 4 mg IVP over 1 minute(s), Site: #1 right AC. Medication Ordered: Zofran IV 4 mg (NOW). Given 11:06 03/11/2017 Maria T Duncan R.N. Medication Administered: TORADOL [IVP], Dose: 30 mg IVP over 1 minute(s), Site: #1 right AC. Medication Ordered: Toradol IV 30 mg (NOW). Given 11:07 03/11/2017 Maria T Duncan R.N. Medication Administered: DILAUDID [IVP] (HYDROMORPHONE HCL PF), Dose: 1 mg IVP over 1 minute(s), Site: #1 right AC. Medication Ordered: Dilaudid IV 1 mg (HIGH ALERT MEDICATION, NOW). Start 11:10 03/11/2017 Maria T Duncan R.N., Stop 13:00 03/11/2017 Maria T Duncan R.N. Medication Administered: IV NS (SALINE), Dose: IV Fluids over 1 minute(s), Rate: 1000 mL/hr, Dispensed: 1000 mL bag, Site: #1 right AC. Medication Ordered: IV NS : initial bolus 1000 mL (1000 mL/hr), then none - for X1 (NOW). Given 11:55 03/11/2017 Maria T Duncan R.N. Medication Administered: DILAUDID [IVP] (HYDROMORPHONE HCL PF), Dose: 2 mg IVP over 1 minute(s), Site: #1 right AC. Medication Ordered: Dilaudid IV 2 mg (HIGH ALERT MEDICATION, NOW). Given 12:30 03/11/2017 Maria T Duncan R.N. Medication Administered: DILAUDID [IVP] (HYDROMORPHONE HCL PF), Dose: 2 mg IVP over 1 minute(s), Site: #1 right AC. Medication Ordered: Dilaudid IV 2 mg (HIGH ALERT MEDICATION, NOW). Given 12:32 03/11/2017 Maria T Duncan R.N. Medication Administered: ZOFRAN [IVP] (ONDANSETRON HCL), Dose: 4 mg IVP over 1 minute(s), Site: #1 right AC. Medication Ordered: Zofran IV 4 mg (NOW). Start 12:50 03/11/2017 Maria T Duncan R.N., Stop 13:05 03/11/2017 Maria T Duncan R.N. Medication Administered: CEFTRIAXONE [IVPB], Dose: 1 gm IVPB over 20 minute(s), Rate: 150 mL/hr, Dispensed: 50 mL bag, Site: #1 right AC. Medication Ordered: Ceftriaxone IV 1 gm/50mL (NOW). Given 13:00 03/11/2017 Maria T Duncan R.N. Medication Administered: PYRIDIUM [PO] (PHENAZOPYRIDINE HCL), Dose: 100 mg Tablets PO. Medication Ordered: Pyridium PO 100 mg (NOW). Given 13:03 03/11/2017 Maria T Duncan R.N. Medication Administered: DILAUDID [IVP] (HYDROMORPHONE HCL PF), Dose: 1 mg IVP over 1 minute(s), Site: #1 right AC. Medication Ordered: Dilaudid IV 1 mg (NOW).
--- NOTE | 2017-03-12 10:27 | ED MED RECONCILIATION SUMMARY ---
Patient: LILIAN PARMAR Medication Reconciliation Report [facility] VisitID: [id number] [address] [place] [address] 47y, F Registration Date/Time: 03/11/2017 Weight: 70.3 kg Height/Length: 66 in. BMI: 25.0 ALLERGIES: all anti nausea medication except for zofran The patient's Home Medications are listed below: CONTINUE TAKING THE FOLLOWING MEDICATIONS: Atenolol Oral (50 mg), daily Estradiol Oral (1 mg) 1 tablet HydrOXYzine HCl Oral Percocet 1-2 tabs every 4 hours - last dose 0630 Zofran ODT Oral (4 mg), last dose: 0700 The source(s) of the original Home Medication information: Not obtained. The following Medications were given to the patient in the Emergency Department: Zofran [IVP] IVP 4 mg, administered: 03/11/2017 11:05:00 AM Toradol [IVP] IVP 30 mg, administered: 03/11/2017 11:06:00 AM Dilaudid [IVP] IVP 1 mg, administered: 03/11/2017 11:07:00 AM IV NS IV Fluids bolus 0, then 1000 mL/hr, administered: 03/11/2017 11:10:00 AM Dilaudid [IVP] IVP 2 mg, administered: 03/11/2017 11:55:00 AM Ceftriaxone [IVPB] IVPB bolus 0, then 1 gm 150 mL/hr, administered: 03/11/2017 12:50:00 PM Pyridium [PO] PO 100 mg, administered: 03/11/2017 1:00:00 PM Dilaudid [IVP] IVP 2 mg, administered: 03/11/2017 12:30:00 PM Dilaudid [IVP] IVP 1 mg, administered: 03/11/2017 1:03:00 PM Zofran [IVP] IVP 4 mg, administered: 03/11/2017 12:32:00 PM The following Medications were prescribed to the patient: Zofran (orally disintegrating tablets) 4 mg: take 1 orally every 8 hours as needed for nausea and vomiting. Dispense fifteen (15). No refill. Substitution is permissible. -- Nakayama, Arsalan, Dr. Cephalexin 500 mg: take 1 capsule orally every 8 hours for 10 days. No refill.(disp 30 caps) -- Arsalan Broussard Dr.
== END 2017-03-11 13:10 | disposition home or self-care (01) ==
LOC: ED SRH 10:18
DX: R31.0 Gross hematuria (principal); N20.2 Calculus of kidney with calculus of ureter; N10 Acute pyelonephritis; Z79.891 Long term (current) use of opiate analgesic; Z79.899 Other long term (current) drug therapy; Z88.8 Allergy status to other drugs, medicaments and biological substances
CPT/HCPCS: 90004; 90047; 90148; 90469; 95059